=== PATIENT | male | born 1950 | race African-American/Black ===

== ENCOUNTER → 2017-11-28 | Outpatient (CLI) | payer MEDICARE, MEDICAID ==
[~2017-11-28] MED LIST: REGADENOSON 0.4 MG/5 ML IV ONE
== END | disposition home or self-care (01) ==
LOC: NM 08:42
PROVIDERS: ATTEND Internal Medicine Cardiovascular Disease
DX: I10 Essential (primary) hypertension (principal); E11.9 Type 2 diabetes mellitus without complications; E78.00 Pure hypercholesterolemia, unspecified; J44.9 Chronic obstructive pulmonary disease, unspecified; Z87.891 Personal history of nicotine dependence
CPT/HCPCS: 78452; 93017; A9500; J2785

== ENCOUNTER 2021-02-03 20:32 | Inpatient (IN) | payer MEDICARE, MEDICAID ==
[~2021-02-03] VITALS: Ht 175.3 cm; Wt 86.0 kg
[~2021-02-03 20:32] MED LIST changes: +AMLO-375 MT; +CLON0.1T PO; +FURO20TA4 MT; +GABA-529 PO; +HYDR100T26 MT; +METO-539 PO; -REGADENOSON 0.4 MG/5 ML IV ONE; +TAMS-11 MT
[2021-02-03 22:32] LABS: BASOPHILS % 0.4 % (0.0-2.0); EOSINOPHILS % 2.3 % (0.0-5.0); HEMATOCRIT. 33.8 % (42.0-52.0); HEMOGLOBIN. 11.6 g/dL (14.0-18.0); LYMPHOCYTES % 19.8 % (20.0-50.0); MEAN CORPUSCULAR HEMOGLOBIN 28.8 pg (28.0-32.0); MEAN CORPUSCULAR VOLUME 84.2 fL (80.0-94.0); MEAN PLATELET VOLUME 6.6 fl (7.4-10.4); MONOCYTES % 13.3 % (2.0-8.0); NEUTROPHILS % 64.2 % (40.0-76.0); PLATELET 272 x1000/uL (130-400); RED BLOOD CELL COUNT 4.01 mill/uL (4.7-6.1); RED CELL DISTRIBUTION WIDTH 15.4 % (11.6-14.6)
[2021-02-03 22:38] LABS: CHLORIDE 112 mEq/L (98-107)
[2021-02-03] MEDS ORDERED: LABETALOL 5MG/ML SYR 20 MG/4 ML SYRINGE IV ONE (22:45)
[2021-02-04] VITALS (53 sets, daily range): BP systolic 94–173; BP diastolic 55–120
[2021-02-04] MEDS ORDERED: LABETALOL 5MG/ML SYR 20 MG/4 ML SYRINGE IV ONE (00:15)
[2021-02-04] MEDS ORDERED: CLONIDINE 0.1MG TABLET PO PRN (04:30)
[2021-02-04 04:39] LABS: BASOPHILS % 0.2 % (0.0-2.0); EOSINOPHILS % 2.6 % (0.0-5.0); HEMATOCRIT. 32.7 % (42.0-52.0); HEMOGLOBIN. 10.9 g/dL (14.0-18.0); LYMPHOCYTES % 18.9 % (20.0-50.0); MEAN CORPUSCULAR HEMOGLOBIN 27.8 pg (28.0-32.0); MEAN CORPUSCULAR VOLUME 83.6 fL (80.0-94.0); MEAN PLATELET VOLUME 6.2 fl (7.4-10.4); MONOCYTES % 14.2 % (2.0-8.0); NEUTROPHILS % 64.1 % (40.0-76.0); PLATELET 245 x1000/uL (130-400); RED BLOOD CELL COUNT 3.92 mill/uL (4.7-6.1); RED CELL DISTRIBUTION WIDTH 15.6 % (11.6-14.6)
[2021-02-04 04:47] LABS: CHLORIDE 114 mEq/L (98-107)
[2021-02-04] MEDS ORDERED: FUROSEMIDE 40MG/4ML VIAL IV NR (06:30)
[2021-02-04] MEDS ORDERED: ACETAMINOPHEN 325MG TABLET PO PRN (07:15)
[2021-02-04] MEDS ORDERED: ENOXAPARIN 40MG/0.4ML SYR SUBCUT SCH (07:15)
[2021-02-04] MEDS ORDERED: MAGNESIUM/ALUMINUM HYDROXIDE/SIMETHICONE 30ML UDC PO PRN (07:15)
[2021-02-04] MEDS ORDERED: IPRATROPIUM/ALBUTEROL 0.5-3(2.5)MG/3ML NEB HHN PRN (07:15)
[2021-02-04] MEDS ORDERED: ONDANSETRON HCL 4MG/2ML INJ IV PRN (07:15)
[2021-02-04] MEDS ORDERED: DEXTROSE 50% WATER 50ML SYRINGE IV PRN ×2 (07:15)
[2021-02-04] MEDS: BLOOD SUGAR DIAGNOSTIC STRIP TEST SCH ×4 (08:22→21:39)
[2021-02-04] MEDS: HYDROCODONE/ACETAMINOPHEN 5/325MG TABLET PO PRN ×3 (08:40→17:17)
[2021-02-04] MEDS: ENOXAPARIN 30MG/0.3ML SYR SUBCUT SCH (08:44)
[2021-02-04] MEDS: INSULIN LISPRO 100 UNITS/ML SUBCUT SCH ×4 (08:44→21:00)
[2021-02-04] MEDS ORDERED: PNEUMOCOCCAL 23-VAL P-SAC VAC 0.5 ML IM ONE (12:30)
[2021-02-04] MEDS: FUROSEMIDE 100MG/10ML VIAL IVP SCH ×2 (12:35→21:38)
[2021-02-04] MEDS: AMLODIPINE 5MG TABLET PO SCH ×2 (12:35→21:39)
[2021-02-04] MEDS: NITROGLYCERIN 50MG PREMIX 250 ML IV SCH ×2 (13:31→20:00)
[2021-02-04] MEDS ORDERED: HYDRALAZINE HCL 100MG TABLET PO SCH ×2 (13:45→22:00)
[2021-02-04] MEDS: CLONIDINE 0.1MG TABLET PO SCH ×2 (14:47→21:39)
[2021-02-04] MEDS ORDERED: CLON0.1T PO (15:32)
[2021-02-04] MEDS ORDERED: HYDR100T26 PO (15:32)
[2021-02-04] MEDS ORDERED: FURO40TA5 MT (16:57)
[2021-02-04] MEDS ORDERED: GABA-529 MT (16:57)
[2021-02-04] MEDS ORDERED: AMLO5TAB4 MT (16:57)
[2021-02-04] MEDS ORDERED: TAMS-11 MT (17:00)
[2021-02-04] MEDS ORDERED: BENA40TA9 MT (17:00)
[2021-02-04] MEDS ORDERED: METO-539 MT (17:00)
[2021-02-04] MEDS: GABAPENTIN 100MG CAPSULE PO SCH (17:17)
[2021-02-04] MEDS ORDERED: MORPHINE SULFATE 2 MG/ML CPJ (NOT FOR IM USE) IV NR (18:30)
[2021-02-04] MEDS ORDERED: LIDOCAINE HCL/PF 1% 10 MG/ML 5ML VIAL ONE (18:44)
[2021-02-04] MEDS ORDERED: LIDOCAINE HCL 1% 10 MG/ML 10ML VIAL IJ NR (19:00)
[2021-02-04] MEDS ORDERED: LIDOCAINE HCL/PF 1% 10 MG/ML 5ML VIAL IJ NR (19:30)
[2021-02-04] MEDS: HYDRALAZINE HCL 50MG TABLET PO SCH (21:39)
[2021-02-05] VITALS (89 sets, daily range): BP systolic 118–202; BP diastolic 47–143
[2021-02-05 05:31] LABS: BASOPHILS % 0.3 % (0.0-2.0); EOSINOPHILS % 0.9 % (0.0-5.0); HEMATOCRIT. 28.9 % (42.0-52.0); HEMOGLOBIN. 9.4 g/dL (14.0-18.0); LYMPHOCYTES % 16.7 % (20.0-50.0); MEAN CORPUSCULAR HEMOGLOBIN 27.4 pg (28.0-32.0); MEAN CORPUSCULAR VOLUME 84.4 fL (80.0-94.0); MEAN PLATELET VOLUME 6.9 fl (7.4-10.4); MONOCYTES % 12.6 % (2.0-8.0); NEUTROPHILS % 69.5 % (40.0-76.0); PLATELET 252 x1000/uL (130-400); RED BLOOD CELL COUNT 3.42 mill/uL (4.7-6.1); RED CELL DISTRIBUTION WIDTH 15.7 % (11.6-14.6)
[2021-02-05 05:43] LABS: PHOSPHORUS 5.9 mg/dL (2.5-4.9)
[2021-02-05] MEDS: CLONIDINE 0.1MG TABLET PO SCH (06:05)
[2021-02-05] MEDS: HYDRALAZINE HCL 50MG TABLET PO SCH (06:05)
[2021-02-05] MEDS: NITROGLYCERIN 50MG PREMIX 250 ML IV SCH (07:30)
[2021-02-05 08:08] LABS: HIV SCREEN 4G Non Reactive (Non Reactive)
[2021-02-05] MEDS: BLOOD SUGAR DIAGNOSTIC STRIP TEST SCH ×4 (08:08→21:09)
[2021-02-05] MEDS: INSULIN LISPRO 100 UNITS/ML SUBCUT SCH ×4 (08:08→21:00)
[2021-02-05] MEDS: ENOXAPARIN 30MG/0.3ML SYR SUBCUT SCH (09:00)
[2021-02-05] MEDS: FUROSEMIDE 40MG/4ML VIAL IVP SCH (09:12)
[2021-02-05] MEDS: GABAPENTIN 100MG CAPSULE PO SCH ×2 (09:12→17:16)
[2021-02-05] MEDS: AMLODIPINE 5MG TABLET PO SCH ×2 (09:12→21:08)
[2021-02-05] MEDS: ASPIRIN 81MG EC TABLET PO SCH (09:12)
[2021-02-05] MEDS: NITROGLYCERIN OINT 1GM/INCH UDPKT TD SCH ×2 (12:27→17:17)
[2021-02-05] MEDS: HYDRALAZINE HCL 100MG TABLET PO SCH ×2 (14:50→21:09)
[2021-02-05] MEDS: CLONIDINE 0.2MG TABLET PO SCH ×2 (14:50→21:08)
[2021-02-05 15:26] LABS: HEPATITIS B SURFACE AB 4.2 mIU/mL
[2021-02-05 15:36] LABS: HEPATITIS B SURFACE ANTIGEN NEGATIVE
[2021-02-05 16:06] LABS: HEPATITIS A AB IGM NEGATIVE (NEGATIVE)
[2021-02-05] MEDS: TAMSULOSIN HCL 0.4MG SR CAPSULE PO SCH (21:08)
[2021-02-06] VITALS (95 sets, daily range): BP systolic 94–192; BP diastolic 63–103
[2021-02-06] MEDS: NITROGLYCERIN OINT 1GM/INCH UDPKT TD SCH ×5 (00:32→23:10)
[2021-02-06 05:52] LABS: BASOPHILS % 0.2 % (0.0-2.0); EOSINOPHILS % 1.9 % (0.0-5.0); HEMATOCRIT. 30.5 % (42.0-52.0); HEMOGLOBIN. 9.9 g/dL (14.0-18.0); LYMPHOCYTES % 18.1 % (20.0-50.0); MEAN CORPUSCULAR HEMOGLOBIN 27.4 pg (28.0-32.0); MEAN PLATELET VOLUME 7.2 fl (7.4-10.4); MONOCYTES % 13.1 % (2.0-8.0); NEUTROPHILS % 66.7 % (40.0-76.0); PLATELET 249 x1000/uL (130-400); RED BLOOD CELL COUNT 3.62 mill/uL (4.7-6.1); RED CELL DISTRIBUTION WIDTH 15.5 % (11.6-14.6)
[2021-02-06] MEDS: CLONIDINE 0.2MG TABLET PO SCH ×2 (06:00→13:17)
[2021-02-06] MEDS: HYDRALAZINE HCL 100MG TABLET PO SCH ×3 (06:00→23:08)
[2021-02-06] MEDS: BLOOD SUGAR DIAGNOSTIC STRIP TEST SCH ×4 (07:58→21:22)
[2021-02-06] MEDS: INSULIN LISPRO 100 UNITS/ML SUBCUT SCH ×4 (07:58→21:00)
[2021-02-06] MEDS: FUROSEMIDE 40MG/4ML VIAL IVP SCH (08:47)
[2021-02-06] MEDS: TAMSULOSIN HCL 0.4MG SR CAPSULE PO SCH (08:48)
[2021-02-06] MEDS: ENOXAPARIN 30MG/0.3ML SYR SUBCUT SCH (08:48)
[2021-02-06] MEDS: ASPIRIN 81MG EC TABLET PO SCH (08:49)
[2021-02-06] MEDS: GABAPENTIN 100MG CAPSULE PO SCH ×2 (08:49→18:03)
[2021-02-06] MEDS: AMLODIPINE 5MG TABLET PO SCH ×2 (08:49→21:22)
[2021-02-06] MEDS: BENZONATATE 100MG CAPSULE PO PRN (13:16)
[2021-02-07] VITALS (92 sets, daily range): BP systolic 83–191; BP diastolic 18–108
[2021-02-07] MEDS: CLONIDINE 0.2MG TABLET PO SCH ×4 (01:26→21:12)
[2021-02-07] MEDS: HYDRALAZINE HCL 100MG TABLET PO SCH ×3 (05:23→21:13)
[2021-02-07] MEDS: NITROGLYCERIN OINT 1GM/INCH UDPKT TD SCH ×3 (05:25→18:22)
[2021-02-07 06:06] LABS: HEMATOCRIT. 29.9 % (42.0-52.0); HEMOGLOBIN. 9.9 g/dL (14.0-18.0); MEAN CORPUSCULAR HEMOGLOBIN 27.9 pg (28.0-32.0); MEAN CORPUSCULAR VOLUME 84.2 fL (80.0-94.0); PLATELET 252 x1000/uL (130-400); RED BLOOD CELL COUNT 3.55 mill/uL (4.7-6.1); RED CELL DISTRIBUTION WIDTH 15.5 % (11.6-14.6)
[2021-02-07] MEDS: INSULIN LISPRO 100 UNITS/ML SUBCUT SCH ×4 (07:46→21:13)
[2021-02-07] MEDS: BLOOD SUGAR DIAGNOSTIC STRIP TEST SCH ×4 (07:46→21:13)
[2021-02-07] MEDS: ASPIRIN 81MG EC TABLET PO SCH (08:55)
[2021-02-07] MEDS: TAMSULOSIN HCL 0.4MG SR CAPSULE PO SCH (08:55)
[2021-02-07] MEDS: DOCUSATE SODIUM 100MG CAPSULE PO PRN (08:55)
[2021-02-07] MEDS: FUROSEMIDE 20MG TABLET PO SCH (08:56)
[2021-02-07] MEDS: BENZONATATE 100MG CAPSULE PO PRN (08:56)
[2021-02-07] MEDS: AMLODIPINE 5MG TABLET PO SCH ×2 (08:56→21:12)
[2021-02-07] MEDS: ENOXAPARIN 30MG/0.3ML SYR SUBCUT SCH (08:57)
[2021-02-07] MEDS: GABAPENTIN 100MG CAPSULE PO SCH ×2 (08:58→18:21)
[2021-02-07 09:59] LABS: PLATELET ESTIMATE NORMAL
[2021-02-07] MEDS: HYDROCODONE/ACETAMINOPHEN 5/325MG TABLET PO PRN (13:33)
[2021-02-08] VITALS (78 sets, daily range): BP systolic 82–172; BP diastolic 41–115
[2021-02-08] MEDS: NITROGLYCERIN OINT 1GM/INCH UDPKT TD SCH ×5 (00:20→23:47)
[2021-02-08 05:21] LABS: HEMOGLOBIN. 9.7 g/dL (14.0-18.0); MEAN CORPUSCULAR HEMOGLOBIN 27.9 pg (28.0-32.0); MEAN CORPUSCULAR VOLUME 83.3 fL (80.0-94.0); PLATELET 255 x1000/uL (130-400); RED BLOOD CELL COUNT 3.48 mill/uL (4.7-6.1); RED CELL DISTRIBUTION WIDTH 15.2 % (11.6-14.6)
[2021-02-08] MEDS: HYDRALAZINE HCL 100MG TABLET PO SCH ×3 (05:39→21:08)
[2021-02-08] MEDS: CLONIDINE 0.2MG TABLET PO SCH ×3 (05:39→21:09)
[2021-02-08] MEDS: BLOOD SUGAR DIAGNOSTIC STRIP TEST SCH ×4 (07:50→21:09)
[2021-02-08] MEDS: INSULIN LISPRO 100 UNITS/ML SUBCUT SCH ×4 (07:50→21:00)
[2021-02-08] MEDS: AMLODIPINE 5MG TABLET PO SCH ×2 (08:39→21:09)
[2021-02-08] MEDS: ASPIRIN 81MG EC TABLET PO SCH (08:39)
[2021-02-08] MEDS: TAMSULOSIN HCL 0.4MG SR CAPSULE PO SCH (08:39)
[2021-02-08] MEDS: GABAPENTIN 100MG CAPSULE PO SCH ×2 (08:39→17:15)
[2021-02-08] MEDS: FUROSEMIDE 20MG TABLET PO SCH (08:39)
[2021-02-08] MEDS: ENOXAPARIN 30MG/0.3ML SYR SUBCUT SCH (08:39)
[2021-02-08 09:40] LABS: PLATELET ESTIMATE NORMAL
[2021-02-09] VITALS (31 sets, daily range): BP systolic 87–150; BP diastolic 39–88
[2021-02-09 05:58] LABS: HEMATOCRIT. 27.9 % (42.0-52.0); HEMOGLOBIN. 9.3 g/dL (14.0-18.0); MEAN CORPUSCULAR HEMOGLOBIN 28.2 pg (28.0-32.0); MEAN CORPUSCULAR VOLUME 84.2 fL (80.0-94.0); MEAN PLATELET VOLUME 7.1 fl (7.4-10.4); PLATELET 272 x1000/uL (130-400); RED BLOOD CELL COUNT 3.31 mill/uL (4.7-6.1)
[2021-02-09] MEDS: HYDRALAZINE HCL 100MG TABLET PO SCH ×2 (06:23→14:15)
[2021-02-09] MEDS: NITROGLYCERIN OINT 1GM/INCH UDPKT TD SCH ×2 (06:23→12:48)
[2021-02-09] MEDS: CLONIDINE 0.2MG TABLET PO SCH ×2 (06:23→14:16)
[2021-02-09] MEDS ORDERED: FURO20TA4 MT (08:09)
[2021-02-09] MEDS: INSULIN LISPRO 100 UNITS/ML SUBCUT SCH ×2 (08:20→12:46)
[2021-02-09] MEDS: BLOOD SUGAR DIAGNOSTIC STRIP TEST SCH ×2 (08:44→12:16)
[2021-02-09] MEDS: FUROSEMIDE 20MG TABLET PO SCH (09:37)
[2021-02-09] MEDS: AMLODIPINE 5MG TABLET PO SCH (09:37)
[2021-02-09] MEDS: BENZONATATE 100MG CAPSULE PO PRN (09:38)
[2021-02-09] MEDS: DOCUSATE SODIUM 100MG CAPSULE PO PRN (09:38)
[2021-02-09] MEDS: TAMSULOSIN HCL 0.4MG SR CAPSULE PO SCH (09:38)
[2021-02-09] MEDS: GABAPENTIN 100MG CAPSULE PO SCH (09:38)
[2021-02-09] MEDS: ASPIRIN 81MG EC TABLET PO SCH (09:38)
[2021-02-09] MEDS: ENOXAPARIN 30MG/0.3ML SYR SUBCUT SCH (09:39)
[2021-02-09] MEDS ORDERED: CLON0.2T PO (10:00)
[2021-02-09 14:16] LABS: PLATELET ESTIMATE NORMAL
== END 2021-02-09 15:10 | disposition home health service (06) | DRG 682 ==
LOC: ER 21:00 → CVICU 02-04 01:11 → EDBEDREQSVC 02-04 07:40 → ENRESERV 02-04 10:49
PROVIDERS: ADMIT Specialist; ATTEND Specialist
DX: N17.9 Acute kidney failure, unspecified (principal); E43 Unspecified severe protein-calorie malnutrition; I16.1 Hypertensive emergency; I13.0 Hypertensive heart and chronic kidney disease with heart failure and stage 1 through stage 4 chronic kidney disease, or unspecified chronic kidney disease; N13.8 Other obstructive and reflux uropathy; N18.4 Chronic kidney disease, stage 4 (severe); I50.9 Heart failure, unspecified; E11.22 Type 2 diabetes mellitus with diabetic chronic kidney disease; D64.9 Anemia, unspecified; I16.0 Hypertensive urgency; Z68.28 Body mass index [BMI] 28.0-28.9, adult; E66.9 Obesity, unspecified; E78.00 Pure hypercholesterolemia, unspecified; E78.5 Hyperlipidemia, unspecified; E87.8 Other disorders of electrolyte and fluid balance, not elsewhere classified; I25.10 Atherosclerotic heart disease of native coronary artery without angina pectoris; I25.2 Old myocardial infarction; J44.9 Chronic obstructive pulmonary disease, unspecified; N40.1 Benign prostatic hyperplasia with lower urinary tract symptoms; Z87.442 Personal history of urinary calculi; Z87.891 Personal history of nicotine dependence; Z90.5 Acquired absence of kidney
CPT/HCPCS: 36415; 71045; 76770; 80048; 80053; 80061; 80076; 82962; 83036; 83735; 83880; 84100; 84153; 84443; 84484; 85025; 86592; 86705; 86706; 86709; 86803; 87340; 87389; 90732; 93005; 93306; 93970; 97162; 97165; 99285; J1650; J1815; J1940; J2270; J3490; A4315; G0103